=== PATIENT | female | born 1945 | race Caucasian/White ===

== ENCOUNTER 2017-06-04 12:05 | Inpatient (IN) | payer MEDICAID, MEDICARE, OTHER ==
[~2017-06-04] VITALS: Ht 149.9 cm; Wt 49.9 kg
[2017-06-04] MEDS ORDERED: ALBUTEROL (0.083%) 2.5MG/3ML NEB HHN STA (14:13)
[2017-06-04] MEDS ORDERED: IPRATROPIUM BROMIDE (0.02%) 0.5MG/2.5ML NEB HHN STA (14:13)
[2017-06-04] MEDS ORDERED: ASPIRIN 81MG TABLET PO STA (14:13)
[2017-06-04] MEDS ORDERED: METHYLPREDNISOLONE SOD SUCC 125 MG/2 ML VIAL IV STA (14:13)
[2017-06-04] MEDS ORDERED: SODIUM CHLORIDE 0.9% 1000ML BAG (SEPSIS BOLUS) IV ONE (14:15)
[2017-06-04] MEDS ORDERED: LEVOFLOXACIN 750MG PREMIX 150 ML IV ONE (14:45)
[2017-06-04 15:01] LABS: BASOPHILS % 1.3 % (0.0-2.0); HEMATOCRIT. 38.7 % (36.0-48.0); HEMOGLOBIN. 13.1 g/dL (12.0-16.0); LYMPHOCYTES % 22.8 % (20.0-50.0); MEAN CORPUSCULAR HEMOGLOBIN 29.7 pg (28.0-32.0); MEAN CORPUSCULAR VOLUME 87.8 fL (81.0-99.0); MEAN PLATELET VOLUME 8.8 fl (7.4-10.4); MONOCYTES % 4.9 % (2.0-8.0); PLATELET 209 x1000/uL (130-400); RED BLOOD CELL COUNT 4.41 mill/uL (4.2-5.4); RED CELL DISTRIBUTION WIDTH 13.9 % (11.6-14.6)
[2017-06-04 15:06] LABS: PARTIAL THROMBOPLASTIN TIME 25.4 sec (23.4-31.0); PROTHROMBIN TIME 10.7 sec (9.4-11.6)
[2017-06-04 15:11] LABS: CARBON DIOXIDE 28 mEq/L (21-32); CHLORIDE 100 mEq/L (98-107)
[2017-06-04 15:15] LABS: TROPONIN I < 0.02 ng/mL (0.00-0.04)
[2017-06-04] MEDS ORDERED: DIPHENHYDRAMINE 50MG/ML VIAL IV PRN (15:15)
[2017-06-04] MEDS ORDERED: LORAZEPAM 2MG/ML CPJ IV PRN (15:15)
[2017-06-04] MEDS ORDERED: CLONIDINE 0.1MG TABLET PO PRN (15:15)
[2017-06-04] MEDS ORDERED: ONDANSETRON HCL 4MG/2ML VIAL IV PRN (15:15)
[2017-06-04] MEDS ORDERED: HYDROCODONE/ACETAMINOPHEN 5/325MG TABLET PO PRN (15:15)
[2017-06-04] MEDS ORDERED: MORPHINE SULFATE 4 MG/ML CPJ (NOT FOR IM USE) IV PRN (15:15)
[2017-06-04 17:17] LABS: CLARITY URINE CLEAR (CLEAR); COLOR URINE YELLOW (YELLOW); GLUCOSE URINE 2+ (NEGATIVE); KETONES URINE NEGATIVE (NEGATIVE); LEUKOCYTE ESTERASE URINE NEGATIVE (NEGATIVE); NITRITE URINE NEGATIVE (NEGATIVE); OCCULT BLOOD URINE NEGATIVE (NEGATIVE); PH URINE 6.5 (4.5-8.0); PROTEIN URINE NEGATIVE (NEGATIVE); SPECIFIC GRAVITY URINE 1.013 (1.005-1.030); UROBILINOGEN URINE 0.2 E.U./dL (0.2-1.0)
[2017-06-04] MEDS: SODIUM CHLORIDE 0.9% 1,000 ML IV SCH (17:30)
[2017-06-04] MEDS ORDERED: METF850T2 PO (18:12)
[2017-06-04 18:19] VITALS: BP 146/78
[2017-06-04] MEDS: METFORMIN HCL 850MG TABLET PO SCH (18:45)
[2017-06-04] MEDS: ENOXAPARIN 40MG/0.4ML SYR SUBCUT SCH (18:46)
[2017-06-04 20:00] VITALS: BP 148/74
[2017-06-05 00:19] VITALS: BP 109/64
[2017-06-05 00:54] LABS: CREATINE KINASE 41 IU/L (26-192); CREATINE KINASE MB FRACTION < 0.5 ng/mL (0.5-3.6)
[2017-06-05] MEDS: SODIUM CHLORIDE 0.9% 1,000 ML IV SCH ×2 (03:44→13:43)
[2017-06-05 04:00] VITALS: BP 117/73
[2017-06-05 07:43] VITALS: BP 138/75
[2017-06-05 08:02] LABS: CARBON DIOXIDE 25 mEq/L (21-32); CHLORIDE 103 mEq/L (98-107); CREATINE KINASE 37 IU/L (26-192); PHOSPHORUS 2.8 mg/dL (2.5-4.9)
[2017-06-05 08:08] LABS: CREATINE KINASE MB FRACTION 0.8 ng/mL (0.5-3.6)
[2017-06-05 08:24] LABS: BASOPHILS % 0.3 % (0.0-2.0); HEMATOCRIT. 37.3 % (36.0-48.0); HEMOGLOBIN. 12.5 g/dL (12.0-16.0); MEAN CORPUSCULAR HEMOGLOBIN 29.2 pg (28.0-32.0); MEAN CORPUSCULAR VOLUME 87.3 fL (81.0-99.0); MEAN PLATELET VOLUME 9.3 fl (7.4-10.4); MONOCYTES % 2.4 % (2.0-8.0); NEUTROPHILS % 81.3 % (40.0-76.0); PLATELET 207 x1000/uL (130-400); RED BLOOD CELL COUNT 4.27 mill/uL (4.2-5.4); RED CELL DISTRIBUTION WIDTH 13.9 % (11.6-14.6)
[2017-06-05] MEDS: ASPIRIN 81MG EC TABLET PO SCH (09:32)
[2017-06-05] MEDS: METFORMIN HCL 850MG TABLET PO SCH ×2 (09:32→17:18)
[2017-06-05] MEDS: THIAMINE HCL 100MG TABLET PO SCH (09:32)
[2017-06-05] MEDS ORDERED: IOHEXOL-300 100 ML BOTTLE ONE (11:37)
[2017-06-05] MEDS ORDERED: SODIUM CHLORIDE 0.9% 10ML VIAL ONE (11:37)
[2017-06-05 11:57] VITALS: BP 157/77
[2017-06-05] MEDS: METHYLPREDNISOLONE SOD SUCC 40 MG/ML VIAL IV SCH ×2 (13:17→22:07)
[2017-06-05 16:00] VITALS: BP 152/74
[2017-06-05] MEDS: IPRATROPIUM/ALBUTEROL 0.5-3(2.5)MG/3ML NEB HHN SCH ×2 (16:03→20:59)
[2017-06-05] MEDS: ENOXAPARIN 40MG/0.4ML SYR SUBCUT SCH (17:19)
[2017-06-05 20:00] VITALS: BP 142/76
[2017-06-05] MEDS: BUDESONIDE 0.5MG/2ML NEB HHN SCH (20:59)
[2017-06-06] VITALS: BP 115/59
[2017-06-06] MEDS: IPRATROPIUM/ALBUTEROL 0.5-3(2.5)MG/3ML NEB HHN SCH ×5 (01:45→16:27)
[2017-06-06 04:00] VITALS: BP 144/72
[2017-06-06] MEDS: METHYLPREDNISOLONE SOD SUCC 40 MG/ML VIAL IV SCH ×2 (06:04→13:07)
[2017-06-06 08:00] VITALS: BP 147/75
[2017-06-06] MEDS: BUDESONIDE 0.5MG/2ML NEB HHN SCH (08:00)
[2017-06-06] MEDS: ASPIRIN 81MG EC TABLET PO SCH (09:12)
[2017-06-06] MEDS: THIAMINE HCL 100MG TABLET PO SCH (09:12)
[2017-06-06] MEDS: METFORMIN HCL 850MG TABLET PO SCH (09:12)
[2017-06-06 12:00] VITALS: BP 152/73
[2017-06-06 16:00] VITALS: BP 153/70
[2017-06-06 17:33] VITALS: BP 133/50
== END 2017-06-06 18:48 | disposition home or self-care (01) | DRG 871 ==
LOC: ER 13:23 → EDBEDREQ 15:45 → ENRESERV 15:59 → CANBEDREQ 16:38 → 7WST 17:10
PROVIDERS: ADMIT Internal Medicine Nephrology; ATTEND Internal Medicine Nephrology
DX: A41.9 Sepsis, unspecified organism (principal); J96.00 Acute respiratory failure, unspecified whether with hypoxia or hypercapnia; J84.9 Interstitial pulmonary disease, unspecified; J44.1 Chronic obstructive pulmonary disease with (acute) exacerbation; J45.901 Unspecified asthma with (acute) exacerbation; E11.9 Type 2 diabetes mellitus without complications; I10 Essential (primary) hypertension; Z77.098 Contact with and (suspected) exposure to other hazardous, chiefly nonmedicinal, chemicals
CPT/HCPCS: 36415; 70470; 71010; 80048; 80053; 81001; 82550; 82553; 82962; 83605; 83735; 83880; 84100; 84443; 84484; 85025; 85610; 85730; 86850; 86900; 87040; 87086; 87804; 93005; 93306; 94640; 96374; 96375; 99285; A4216; J1650; J1956; J2920; J2930; J7030; J7611; J7620; J7626; Q9967

== ENCOUNTER 2017-06-10 13:25 | Emergency (ER) | payer MEDICARE ==
[~2017-06-10] VITALS: Ht 149.9 cm; Wt 60.0 kg
[~2017-06-10 13:25] MED LIST: METF850T2 PO
[2017-06-10] MEDS ORDERED: ONDANSETRON HCL 4MG/2ML VIAL IV STA (14:36)
[2017-06-10] MEDS ORDERED: SODIUM CHLORIDE 0.9% 1,000 ML IV ONE (14:36)
[2017-06-10 15:13] LABS: BASOPHILS % 0.7 % (0.0-2.0); EOSINOPHILS % 1.9 % (0.0-5.0); HEMATOCRIT. 39.8 % (36.0-48.0); HEMOGLOBIN. 13.5 g/dL (12.0-16.0); LYMPHOCYTES % 13.1 % (20.0-50.0); MEAN CORPUSCULAR HEMOGLOBIN 29.7 pg (28.0-32.0); MEAN CORPUSCULAR VOLUME 87.4 fL (81.0-99.0); MEAN PLATELET VOLUME 9.1 fl (7.4-10.4); MONOCYTES % 3.3 % (2.0-8.0); PLATELET 221 x1000/uL (130-400); RED BLOOD CELL COUNT 4.55 mill/uL (4.2-5.4); RED CELL DISTRIBUTION WIDTH 13.9 % (11.6-14.6)
[2017-06-10 15:15] LABS: PROTHROMBIN TIME 10.4 sec (9.4-11.6)
[2017-06-10 15:23] LABS: CARBON DIOXIDE 29 mEq/L (21-32); CHLORIDE 98 mEq/L (98-107)
[2017-06-10 16:56] VITALS: BP 128/69
== END 2017-06-10 19:27 | disposition home or self-care (01) ==
LOC: ER 13:25
DX: E11.65 Type 2 diabetes mellitus with hyperglycemia (principal); R11.2 Nausea with vomiting, unspecified; J44.9 Chronic obstructive pulmonary disease, unspecified; I10 Essential (primary) hypertension; Z79.84 Long term (current) use of oral hypoglycemic drugs
CPT/HCPCS: 36415; 80053; 82962; 85025; 85610; 96361; 96374; 99285; J2405; J7030

== ENCOUNTER 2018-11-04 12:32 | Inpatient (IN) | payer BC, MEDICAID, MEDICARE, OTHER ==
[~2018-11-04] VITALS: Ht 160 cm; Wt 52.6 kg
[2018-11-04] VITALS: BP 101/63
[~2018-11-04 12:32] MED LIST changes: +METF-415 PO; -METF850T2 PO
[2018-11-04] MEDS ORDERED: KETOROLAC 30MG/ML VIAL IV STA (17:32)
[2018-11-04] MEDS ORDERED: SODIUM CHLORIDE 0.9% 1,000 ML IV ONE (17:32)
[2018-11-04] MEDS ORDERED: ONDANSETRON HCL 4MG/2ML INJ IV STA (17:32)
[2018-11-04 18:28] LABS: BASOPHILS % 1.5 % (0.0-2.0); EOSINOPHILS % 9.6 % (0.0-5.0); HEMATOCRIT. 41.4 % (36.0-48.0); HEMOGLOBIN. 13.8 g/dL (12.0-16.0); LYMPHOCYTES % 25.1 % (20.0-50.0); MEAN CORPUSCULAR HEMOGLOBIN 30.5 pg (28.0-32.0); MEAN CORPUSCULAR VOLUME 91.2 fL (81.0-99.0); MEAN PLATELET VOLUME 9.1 fl (7.4-10.4); MONOCYTES % 7.1 % (2.0-8.0); NEUTROPHILS % 56.7 % (40.0-76.0); PLATELET 221 x1000/uL (130-400); RED BLOOD CELL COUNT 4.54 mill/uL (4.2-5.4); RED CELL DISTRIBUTION WIDTH 14.2 % (11.6-14.6)
[2018-11-04 18:30] LABS: CHLORIDE 105 mEq/L (98-107)
[2018-11-04 18:31] LABS: PROTHROMBIN TIME 10.2 sec (9.1-11.1)
[2018-11-04 19:04] LABS: CLARITY URINE TURBID (CLEAR); COLOR URINE DARK YELLOW (YELLOW); KETONES URINE NEGATIVE (NEGATIVE); LEUKOCYTE ESTERASE URINE 1+ (NEGATIVE); NITRITE URINE POSITIVE (NEGATIVE); OCCULT BLOOD URINE NEGATIVE (NEGATIVE); PH URINE 5.5 (4.5-8.0); PROTEIN URINE TRACE (NEGATIVE); SPECIFIC GRAVITY URINE 1.035 (1.005-1.030)
[2018-11-04] MEDS ORDERED: CEFTRIAXONE 1 G PREMIX 50 ML IV ONE (19:15)
[2018-11-04] MEDS ORDERED: CLONIDINE 0.2MG TABLET PO ONE (20:15)
[2018-11-04] MEDS ORDERED: ONDANSETRON HCL 4MG/2ML INJ IV PRN (23:15)
[2018-11-04] MEDS ORDERED: LORAZEPAM 2MG/ML CPJ IV PRN (23:15)
[2018-11-05 00:54] VITALS: BP 101/63
[2018-11-05] MEDS: SODIUM CHLORIDE 0.9% 1,000 ML IV SCH ×2 (01:10→20:28)
[2018-11-05 04:00] VITALS: BP 115/55
[2018-11-05 06:32] LABS: BASOPHILS % 1.5 % (0.0-2.0); EOSINOPHILS % 11.8 % (0.0-5.0); HEMATOCRIT. 33.4 % (36.0-48.0); HEMOGLOBIN. 11.2 g/dL (12.0-16.0); LYMPHOCYTES % 23.5 % (20.0-50.0); MEAN CORPUSCULAR HEMOGLOBIN 30.4 pg (28.0-32.0); MEAN PLATELET VOLUME 9.5 fl (7.4-10.4); MONOCYTES % 7.7 % (2.0-8.0); NEUTROPHILS % 55.5 % (40.0-76.0); PLATELET 183 x1000/uL (130-400); RED BLOOD CELL COUNT 3.68 mill/uL (4.2-5.4); RED CELL DISTRIBUTION WIDTH 14.1 % (11.6-14.6)
[2018-11-05 06:39] LABS: CHLORIDE 108 mEq/L (98-107)
[2018-11-05 06:46] LABS: PHOSPHORUS 2.6 mg/dL (2.5-4.9)
[2018-11-05 08:00] VITALS: BP 114/57
[2018-11-05] MEDS: CEFTRIAXONE SODIUM 1 G/VIAL IM SCH (08:52)
[2018-11-05] MEDS ORDERED: ENOXAPARIN 40MG/0.4ML SYR SUBCUT SCH (09:00)
[2018-11-05] MEDS ORDERED: DEXTROSE 50% WATER 50ML SYRINGE IV PRN (09:15)
[2018-11-05 12:00] VITALS: BP 143/49
[2018-11-05] MEDS: BLOOD SUGAR DIAGNOSTIC STRIP TEST SCH ×3 (12:16→20:09)
[2018-11-05] MEDS ORDERED: INSULIN LISPRO 100 UNITS/ML SUBCUT SCH (12:20)
[2018-11-05] MEDS: INSULIN LISPRO (MEDIUM DOSE) 100 UNITS/ML SUBCUT SCH ×3 (12:20→20:11)
[2018-11-05] MEDS: ALBUTEROL (0.5%) 2.5MG/0.5ML NEB HHN PRN (12:55)
[2018-11-05] MEDS ORDERED: LEVOFLOXACIN 500MG PREMIX 100 ML IV NR (15:00)
[2018-11-05 15:16] LABS: CHLORIDE 107 mEq/L (98-107)
[2018-11-05 16:00] VITALS: BP 142/68
[2018-11-05 20:00] VITALS: BP 161/83
[2018-11-06] VITALS (23 sets, daily range): BP systolic 133–182; BP diastolic 62–96
[2018-11-06] MEDS: BLOOD SUGAR DIAGNOSTIC STRIP TEST SCH ×4 (06:31→21:00)
[2018-11-06] MEDS: INSULIN LISPRO (MEDIUM DOSE) 100 UNITS/ML SUBCUT SCH ×4 (07:20→21:00)
[2018-11-06 07:23] LABS: CHLORIDE 109 mEq/L (98-107)
[2018-11-06] MEDS ORDERED: MIDAZOLAM HCL 2 MG/2 ML VIAL ONE (07:32)
[2018-11-06] MEDS ORDERED: FENTANYL CITRATE/PF 50MCG/ML 2ML VIAL ONE (07:32)
[2018-11-06] MEDS ORDERED: SODIUM BICARBONATE 4% (2.4MEQ) 5ML VIAL IV ONE (07:32)
[2018-11-06] MEDS ORDERED: LIDOCAINE HCL 1% 20ML VIAL (Pyxis) INJ ONE (07:32)
[2018-11-06] MEDS ORDERED: IOHEXOL-300 100 ML BOTTLE ONE (08:11)
[2018-11-06] MEDS ORDERED: FENTANYL CITRATE/PF 50MCG/ML 2ML VIAL IV ONE (09:00)
[2018-11-06] MEDS ORDERED: MIDAZOLAM HCL 2 MG/2 ML VIAL IV ONE (09:00)
[2018-11-06] MEDS: CEFTRIAXONE SODIUM 1 G/VIAL IM SCH (10:53)
[2018-11-06] MEDS: ACETAMINOPHEN 650MG/20.3ML UDC GT PRN (12:38)
[2018-11-06 12:41] LABS: HEPATITIS B SURFACE ANTIGEN NEGATIVE
[2018-11-06 13:11] LABS: HEPATITIS A AB IGM NEGATIVE (NEGATIVE)
[2018-11-06] MEDS: LEVOFLOXACIN 250MG PREMIX 50 ML IV SCH (13:22)
[2018-11-06] MEDS: SODIUM CHLORIDE 0.9% 1,000 ML IV SCH (18:00)
[2018-11-07] VITALS: BP 168/71
[2018-11-07] MEDS: ALBUTEROL (0.5%) 2.5MG/0.5ML NEB HHN PRN (01:54)
[2018-11-07 04:00] VITALS: BP 137/61
[2018-11-07] MEDS: BLOOD SUGAR DIAGNOSTIC STRIP TEST SCH ×4 (06:38→21:00)
[2018-11-07] MEDS: INSULIN LISPRO (MEDIUM DOSE) 100 UNITS/ML SUBCUT SCH ×4 (06:41→22:40)
[2018-11-07 07:00] LABS: EOSINOPHILS % 3.8 % (0.0-5.0); HEMATOCRIT. 32.5 % (36.0-48.0); HEMOGLOBIN. 11.2 g/dL (12.0-16.0); LYMPHOCYTES % 20.8 % (20.0-50.0); MEAN CORPUSCULAR HEMOGLOBIN 30.8 pg (28.0-32.0); MEAN CORPUSCULAR VOLUME 89.5 fL (81.0-99.0); MEAN PLATELET VOLUME 9.1 fl (7.4-10.4); NEUTROPHILS % 68.4 % (40.0-76.0); PLATELET 195 x1000/uL (130-400); RED BLOOD CELL COUNT 3.63 mill/uL (4.2-5.4); RED CELL DISTRIBUTION WIDTH 14.3 % (11.6-14.6)
[2018-11-07 07:23] LABS: CHLORIDE 108 mEq/L (98-107)
[2018-11-07 08:00] VITALS: BP 136/64
[2018-11-07] MEDS ORDERED: POTASSIUM CHLORIDE INJ 40 MEQ in DEXT 5% WATER 500 ML IV NR (10:00)
[2018-11-07] MEDS: CEFTRIAXONE SODIUM 1 G/VIAL IM SCH (10:24)
[2018-11-07 12:00] VITALS: BP 154/62
[2018-11-07] MEDS: SODIUM CHLORIDE 0.9% 1,000 ML IV SCH (12:54)
[2018-11-07] MEDS: LEVOFLOXACIN 250MG PREMIX 50 ML IV SCH (12:54)
[2018-11-07] MEDS ORDERED: MIDAZOLAM HCL 5 MG/5 ML VIAL IV PRN (14:59)
[2018-11-07] MEDS ORDERED: MIDAZOLAM HCL 5 MG/5 ML VIAL ONE (14:59)
[2018-11-07] MEDS ORDERED: FENTANYL CITRATE/PF 50MCG/ML 2ML VIAL ONE (14:59)
[2018-11-07] MEDS ORDERED: FENTANYL CITRATE/PF 50MCG/ML 2ML VIAL IV PRN (15:00)
[2018-11-07] MEDS ORDERED: BACTERIOSTATIC SODIUM CHLORIDE 0.9% 30ML VIAL IJ ONE (15:16)
[2018-11-07] MEDS ORDERED: SIMETHICONE 40 MG/0.6 ML 30ML ONE (15:16)
[2018-11-07] MEDS ORDERED: OMEPRAZOLE 20MG CAPSULE EXTENDED RELEASE PO NR (15:30)
[2018-11-07 20:00] VITALS: BP 141/77
[2018-11-08] VITALS (19 sets, daily range): BP systolic 125–186; BP diastolic 68–97
[2018-11-08] MEDS: OMEPRAZOLE 20MG CAPSULE EXTENDED RELEASE PO SCH (06:52)
[2018-11-08] MEDS: BLOOD SUGAR DIAGNOSTIC STRIP TEST SCH ×4 (06:54→20:50)
[2018-11-08] MEDS: INSULIN LISPRO (MEDIUM DOSE) 100 UNITS/ML SUBCUT SCH ×4 (07:20→20:51)
[2018-11-08] MEDS: ALBUTEROL (0.083%) 2.5MG/3ML NEB HHN PRN (07:57)
[2018-11-08 08:03] LABS: BASOPHILS % 0.8 % (0.0-2.0); EOSINOPHILS % 6.4 % (0.0-5.0); HEMATOCRIT. 35.8 % (36.0-48.0); HEMOGLOBIN. 12.2 g/dL (12.0-16.0); LYMPHOCYTES % 15.8 % (20.0-50.0); MEAN CORPUSCULAR HEMOGLOBIN 30.9 pg (28.0-32.0); MEAN CORPUSCULAR VOLUME 90.9 fL (81.0-99.0); MEAN PLATELET VOLUME 8.9 fl (7.4-10.4); MONOCYTES % 7.3 % (2.0-8.0); NEUTROPHILS % 69.7 % (40.0-76.0); PLATELET 202 x1000/uL (130-400); RED BLOOD CELL COUNT 3.94 mill/uL (4.2-5.4); RED CELL DISTRIBUTION WIDTH 14.4 % (11.6-14.6)
[2018-11-08 08:23] LABS: CHLORIDE 107 mEq/L (98-107)
[2018-11-08 08:37] LABS: PHOSPHORUS 2.7 mg/dL (2.5-4.9)
[2018-11-08] MEDS ORDERED: SODIUM BICARBONATE 4% (2.4MEQ) 5ML VIAL IV ONE (08:38)
[2018-11-08] MEDS ORDERED: IOHEXOL-300 50 ML BOTTLE IV ONE (08:39)
[2018-11-08] MEDS ORDERED: LIDOCAINE HCL 1% 20ML VIAL (Pyxis) INJ ONE (08:39)
[2018-11-08] MEDS ORDERED: MIDAZOLAM HCL 2 MG/2 ML VIAL ONE (09:10)
[2018-11-08] MEDS ORDERED: FENTANYL CITRATE/PF 50MCG/ML 2ML VIAL ONE (09:10)
[2018-11-08] MEDS ORDERED: MIDAZOLAM HCL 5 MG/5 ML VIAL IV SCH (09:30)
[2018-11-08] MEDS ORDERED: POTASSIUM CHLORIDE 20MEQ/PACKET PO SCH (09:30)
[2018-11-08] MEDS ORDERED: FENTANYL CITRATE/PF 50MCG/ML 2ML VIAL IV SCH (09:30)
[2018-11-08] MEDS: CEFTRIAXONE SODIUM 1 G/VIAL IM SCH (10:29)
[2018-11-08] MEDS: SODIUM CHLORIDE 0.9% 1,000 ML IV SCH ×2 (10:29→20:50)
[2018-11-08] MEDS ORDERED: ENOXAPARIN 40MG/0.4ML SYR SUBCUT SCH (12:30)
[2018-11-08] MEDS ORDERED: ENOXAPARIN 60MG/0.6ML SYR SUBCUT NR (12:45)
[2018-11-08] MEDS ORDERED: HYDROMORPHONE HCL/PF 2MG/ML CPJ IV PRN (15:00)
[2018-11-08] MEDS: LEVOFLOXACIN 250MG PREMIX 50 ML IV SCH (18:18)
[2018-11-08] MEDS ORDERED: MORPHINE SULFATE 4 MG/ML CPJ (NOT FOR IM USE) IV PRN (19:15)
[2018-11-09] VITALS: BP 118/56
[2018-11-09 04:00] VITALS: BP 127/62
[2018-11-09] MEDS: ACETAMINOPHEN 650MG/20.3ML UDC GT PRN ×2 (05:02→21:56)
[2018-11-09] MEDS: ALBUTEROL (0.083%) 2.5MG/3ML NEB HHN PRN (05:30)
[2018-11-09 06:58] LABS: BASOPHILS % 0.5 % (0.0-2.0); EOSINOPHILS % 0.4 % (0.0-5.0); HEMATOCRIT. 32.5 % (36.0-48.0); HEMOGLOBIN. 10.8 g/dL (12.0-16.0); LYMPHOCYTES % 15.9 % (20.0-50.0); MEAN CORPUSCULAR HEMOGLOBIN 30.3 pg (28.0-32.0); MEAN CORPUSCULAR VOLUME 91.3 fL (81.0-99.0); MEAN PLATELET VOLUME 9.4 fl (7.4-10.4); MONOCYTES % 8.9 % (2.0-8.0); NEUTROPHILS % 74.3 % (40.0-76.0); PLATELET 196 x1000/uL (130-400); RED BLOOD CELL COUNT 3.56 mill/uL (4.2-5.4); RED CELL DISTRIBUTION WIDTH 14.8 % (11.6-14.6)
[2018-11-09 07:19] LABS: CHLORIDE 106 mEq/L (98-107)
[2018-11-09] MEDS: BLOOD SUGAR DIAGNOSTIC STRIP TEST SCH ×4 (07:40→21:55)
[2018-11-09 08:00] VITALS: BP 107/47
[2018-11-09] MEDS: CEFTRIAXONE 1,000 MG in DEXTROSE 5% WATER 50 ML IV SCH (09:16)
[2018-11-09] MEDS: OMEPRAZOLE 20MG CAPSULE EXTENDED RELEASE PO SCH (09:17)
[2018-11-09] MEDS: INSULIN LISPRO (MEDIUM DOSE) 100 UNITS/ML SUBCUT SCH ×4 (09:18→22:28)
[2018-11-09 12:00] VITALS: BP_SYST 125; BP_DIAS 52; BP_DIAS 53
[2018-11-09 16:00] VITALS: BP 174/78
[2018-11-09] MEDS: POTASSIUM CHLORIDE 20MEQ TABLET SR PO SCH (16:27)
[2018-11-09 20:00] VITALS: BP 140/69
[2018-11-10] VITALS: BP_SYST 124; BP_SYST 140; BP_DIAS 54; BP_DIAS 65
[2018-11-10 04:00] VITALS: BP 147/69
[2018-11-10] MEDS: BLOOD SUGAR DIAGNOSTIC STRIP TEST SCH ×3 (06:40→20:31)
[2018-11-10] MEDS: INSULIN LISPRO (MEDIUM DOSE) 100 UNITS/ML SUBCUT SCH ×3 (06:44→20:31)
[2018-11-10 07:38] LABS: CHLORIDE 109 mEq/L (98-107)
[2018-11-10 08:00] VITALS: BP 157/83
[2018-11-10] MEDS: POTASSIUM CHLORIDE 20MEQ TABLET SR PO SCH (08:53)
[2018-11-10] MEDS: OMEPRAZOLE 20MG CAPSULE EXTENDED RELEASE PO SCH (08:53)
[2018-11-10 12:00] VITALS: BP 172/75
[2018-11-10] MEDS: CLONIDINE 0.1MG TABLET PO PRN (13:28)
[2018-11-10] MEDS: CEFTRIAXONE 1,000 MG in DEXTROSE 5% WATER 50 ML IV SCH (13:39)
[2018-11-10 16:00] VITALS: BP 116/58
[2018-11-10 20:00] VITALS: BP 153/70
[2018-11-11] VITALS: BP 122/66
[2018-11-11] MEDS: ALBUTEROL (0.083%) 2.5MG/3ML NEB HHN PRN (02:01)
[2018-11-11 06:00] VITALS: BP 136/68
[2018-11-11] MEDS: BLOOD SUGAR DIAGNOSTIC STRIP TEST SCH ×4 (06:35→21:13)
[2018-11-11] MEDS: OMEPRAZOLE 20MG CAPSULE EXTENDED RELEASE PO SCH (06:39)
[2018-11-11 06:53] LABS: CHLORIDE 105 mEq/L (98-107)
[2018-11-11] MEDS: INSULIN LISPRO (MEDIUM DOSE) 100 UNITS/ML SUBCUT SCH ×4 (07:34→21:00)
[2018-11-11 08:00] VITALS: BP 128/57
[2018-11-11] MEDS: CEFTRIAXONE 1,000 MG in DEXTROSE 5% WATER 50 ML IV SCH (09:02)
[2018-11-11] MEDS: POTASSIUM CHLORIDE 20MEQ TABLET SR PO SCH (09:13)
[2018-11-11 12:00] VITALS: BP 146/72
[2018-11-11 16:00] VITALS: BP 160/77
[2018-11-11 20:00] VITALS: BP 183/83
[2018-11-11] MEDS: CLONIDINE 0.1MG TABLET PO PRN (21:19)
[2018-11-12] VITALS: BP 153/75
[2018-11-12 04:00] VITALS: BP 114/56
[2018-11-12 05:47] LABS: BASOPHILS % 1.1 % (0.0-2.0); EOSINOPHILS % 6.4 % (0.0-5.0); HEMATOCRIT. 33.2 % (36.0-48.0); HEMOGLOBIN. 11.2 g/dL (12.0-16.0); LYMPHOCYTES % 13.8 % (20.0-50.0); MEAN CORPUSCULAR HEMOGLOBIN 30.6 pg (28.0-32.0); MEAN PLATELET VOLUME 8.7 fl (7.4-10.4); MONOCYTES % 8.2 % (2.0-8.0); NEUTROPHILS % 70.5 % (40.0-76.0); PLATELET 252 x1000/uL (130-400); RED BLOOD CELL COUNT 3.65 mill/uL (4.2-5.4); RED CELL DISTRIBUTION WIDTH 14.8 % (11.6-14.6)
[2018-11-12 06:24] LABS: CHLORIDE 104 mEq/L (98-107)
[2018-11-12] MEDS: OMEPRAZOLE 20MG CAPSULE EXTENDED RELEASE PO SCH (06:35)
[2018-11-12] MEDS: BLOOD SUGAR DIAGNOSTIC STRIP TEST SCH ×4 (06:35→20:58)
[2018-11-12] MEDS: ALBUTEROL (0.083%) 2.5MG/3ML NEB HHN PRN (06:39)
[2018-11-12] MEDS: INSULIN LISPRO (MEDIUM DOSE) 100 UNITS/ML SUBCUT SCH ×4 (07:40→21:02)
[2018-11-12 08:00] VITALS: BP 118/54
[2018-11-12] MEDS: POTASSIUM CHLORIDE 20MEQ TABLET SR PO SCH (09:02)
[2018-11-12] MEDS: CEFTRIAXONE 1,000 MG in DEXTROSE 5% WATER 50 ML IV SCH (09:29)
[2018-11-12 12:00] VITALS: BP 116/60
[2018-11-12 16:00] VITALS: BP 125/59
[2018-11-12] MEDS: ACETAMINOPHEN 650MG/20.3ML UDC GT PRN (17:01)
[2018-11-12 20:00] VITALS: BP 153/76
[2018-11-13] VITALS (7 sets, daily range): BP systolic 120–155; BP diastolic 62–78
[2018-11-13] MEDS: ACETAMINOPHEN 650MG/20.3ML UDC GT PRN (04:00)
[2018-11-13] MEDS: BLOOD SUGAR DIAGNOSTIC STRIP TEST SCH ×3 (06:54→21:42)
[2018-11-13] MEDS: OMEPRAZOLE 20MG CAPSULE EXTENDED RELEASE PO SCH (06:54)
[2018-11-13] MEDS: INSULIN LISPRO (MEDIUM DOSE) 100 UNITS/ML SUBCUT SCH ×3 (07:40→21:00)
[2018-11-13] MEDS: POTASSIUM CHLORIDE 20MEQ TABLET SR PO SCH (08:49)
[2018-11-13] MEDS: CEFTRIAXONE 1,000 MG in DEXTROSE 5% WATER 50 ML IV SCH (09:19)
== END 2018-11-13 22:03 | disposition home health service (06) | DRG 375 ==
LOC: ER 12:54 → 6EST 19:44 → ENRESERV 20:59 → 6EST 11-05 00:57 → 7WST 11-08 14:45
PROVIDERS: ADMIT Internal Medicine Nephrology; ATTEND Internal Medicine Nephrology
PROC: 0F9930Z Drainage of Common Bile Duct with Drainage Device, Percutaneous Approach (ICD-10-PCS; 2018-11-06)
PROC: 0DB78ZX Excision of Stomach, Pylorus, Via Natural or Artificial Opening Endoscopic, Diagnostic (ICD-10-PCS; principal; 2018-11-07)
PROC: BF101ZZ Fluoroscopy of Bile Ducts using Low Osmolar Contrast (ICD-10-PCS; 2018-11-08)
PROC: 0F2BX0Z Change Drainage Device in Hepatobiliary Duct, External Approach (ICD-10-PCS; 2018-11-08)
PROC: 0FB93ZX Excision of Common Bile Duct, Percutaneous Approach, Diagnostic (ICD-10-PCS; 2018-11-08)
DX: D49.0 Neoplasm of unspecified behavior of digestive system (principal); K80.21 Calculus of gallbladder without cholecystitis with obstruction; N39.0 Urinary tract infection, site not specified; K22.10 Ulcer of esophagus without bleeding; J84.9 Interstitial pulmonary disease, unspecified; E11.65 Type 2 diabetes mellitus with hyperglycemia; K44.9 Diaphragmatic hernia without obstruction or gangrene; K29.70 Gastritis, unspecified, without bleeding; E87.6 Hypokalemia; K86.9 Disease of pancreas, unspecified; K83.8 Other specified diseases of biliary tract; J44.9 Chronic obstructive pulmonary disease, unspecified; I11.9 Hypertensive heart disease without heart failure; J84.10 Pulmonary fibrosis, unspecified; Z91.19 Patient's noncompliance with other medical treatment and regimen; Z79.84 Long term (current) use of oral hypoglycemic drugs
CPT/HCPCS: 36415; 47531; 47534; 71045; 74176; 74181; 76705; 77002; 78582; 80048; 80076; 82105; 82378; 82962; 83735; 84100; 84484; 86301; 86705; 86709; 86803; 87340; 88305; 88312; 88313; 93005; 93306; 93970; 94640; 96361; 96365; 96375; 99152; 99153; 99285; A9558; C1725; C1729; C1769; J0696; J1170; J1644; J1650; J1815; J1885; J1956; J2250; J2405; J3010; J3480; J3490; J7030; J7040; J7050; J7060; J7611; Q9967; G0500